=== PATIENT | female | born 1990 | race Caucasian/White ===

== ENCOUNTER 2020-03-03 21:47 | Emergency (ER) | payer SELFPAY ==
[2020-03-03] MEDS ORDERED: CIPR500T PO (23:10)
--- NOTE | 2020-03-03 23:11 | PHYS DOC ---
General Adult EDM: Chief Complaint: PUNCTURE WOUND HPI: HPI: Patient is a 29 year old 29-year-old female who presents after needlestick to her right foot. Patient states that she had been walking outside with her tennis shoes and stepped on a needle. When she looked at it, she realized it was a hypodermic needle. She indicates the hub was still on it. She pulled the needle out. She did have some bleeding from the site. Patient is not sure how long needle had been sitting on the ground. She does indicate there are drug users nearby where she lives. She denies any other injuries. [] Review of Systems: Review of Systems: Constitutional: Denies fever or chills. [] Respiratory: Denies cough or shortness of breath. [] Cardiovascular: Denies chest pain or edema. [] Musculoskeletal: Positive needlestick right foot. [] Integument: Denies rash. [] Heart Score: Risk Factors: Risk Factors: DM, Current or recent (<one month) smoker, HTN, HLP, family history of CAD, obesity. Risk Scores: Score 0 - 3: 2.5% MACE over next 6 weeks - Discharge Home Score 4 - 6: 20.3% MACE over next 6 weeks - Admit for Clinical Observation Score 7 - 10: 72.7% MACE over next 6 weeks - Early Invasive Strategies Current Medications: Current Medications Medications (Trade) Dose Ordered Sig/Alistair Start Time Stop Time Status Last Admin Dose Admin Ciprofloxacin (Cipro) 500 mg 1X ONCE 03/03/20 23:00 03/03/20 23:01 UNV Physical Exam: PE: Constitutional: Well developed, well nourished, no acute distress, non-toxic appearance. [] Cardiovascular:Heart rate regular rhythm, no murmur [] Lungs & Thorax: Bilateral breath sounds clear to auscultation [] Skin: Warm, dry, no erythema, no rash. [] Extremities: No tenderness, no cyanosis, no clubbing, ROM intact, no edema. [] EKG: EKG: [] Radiology/Procedures: Radiology/Procedures: [] Course & Med Decision Making: Course & Med Decision Making Pertinent Labs and Imaging studies reviewed. (See chart for details) [] Dragon Disclaimer: Dragon Disclaimer: This electronic medical record was generated, in whole or in part, using a voice recognition dictation system. Departure Departure Impression: Primary Impression: Needlestick injury due to hypodermic needle Disposition: HOME, SELF-CARE Condition: STABLE Referrals: NO PCP (PCP) Patient Instructions: Needle Stick Injury Scripts Ciprofloxacin Hcl (CIPROFLOXACIN HCL) 500 Mg Tablet 1 TAB PO BID, #20 TAB Prov: SYLVESTER LIEBERMAN Jr. DO 03/03/20 SYLVESTER LIEBERMAN Jr. DO March 03, 2020 23:10
[2020-03-03] MEDS ORDERED: CIPROFLOXACIN HCL 250 MG TABLET. PO ONE (23:30)
== END 2020-03-03 23:26 | disposition home or self-care (01) ==
LOC: ER 21:47
DX: S91.331A Puncture wound without foreign body, right foot, initial encounter (principal); W21.31XA Struck by shoe cleats, initial encounter; Y93.89 Activity, other specified; Y92.89 Other specified places as the place of occurrence of the external cause; Y99.8 Other external cause status
CPT/HCPCS: 99283